=== PATIENT | female | born 1985 | race Caucasian/White ===

== ENCOUNTER → 2016-05-05 | Outpatient (CLI) | payer BC ==
[2016-05-05 12:32] LABS: CH 31.8; CHCM 33.4; HCT 37.2 % (34.0-46.0); HDW 2.59; MCH 30.8 pg (25.0-35.0); MCHC 32.2 g/dL (31.0-37.0); MCV 95.5 fL (80.0-100.0); Mean Platelet Volume 8.3; RDW 13.2 % (11.5-15.5); WBC 7.9 k/uL (3.8-10.6)
== END | disposition home or self-care (01) ==
LOC: LABWHC1 11:18
PROVIDERS: ATTEND Obstetrics & Gynecology
DX: Z34.02 Encounter for supervision of normal first pregnancy, second trimester (principal); Z3A.00 Weeks of gestation of pregnancy not specified
CPT/HCPCS: 36415; 82950; 85027

== ENCOUNTER → 2016-05-12 | Outpatient (CLI) | payer BC ==
[2016-05-12 11:27] LABS: Glucose 3 Hour, Gest 105 mg/dL
== END | disposition home or self-care (01) ==
LOC: LABWHC1 07:25
PROVIDERS: ATTEND Obstetrics & Gynecology
DX: O24.419 Gestational diabetes mellitus in pregnancy, unspecified control (principal); Z3A.00 Weeks of gestation of pregnancy not specified
CPT/HCPCS: 36415; 82951; 82952

== ENCOUNTER 2016-08-18 16:21 | Inpatient (IN) | payer BC ==
--- NOTE | 2016-08-18 11:52 | P.HPOB ---
History of Present Illness H&P Date: 08/18/16 Chief Complaint: Patient is presenting for induction secondary to gestational diabetes. This patient is a pleasant 30-year-old 1 para 0 female estimated date of confinement 08/25/2016 estimated gestational age he 9-0/7 weeks gestation who is presenting for two-stage induction of labor secondary to unfavorable cervix with gestational diabetes at term. Patient's has been complicated by the gestational diabetes and has been managed by maternal medicine. She has had to go on on oral hypoglycemic but has had relatively good control. She also has a large uterine fibroid that has been watched by maternal medicine as well. Recommendations at this time are to proceed with delivery and she has an unfavorable cervix so we are going to proceed with a two-stage induction of labor. Review of Systems Constitutional: Denies chills, Denies fever Ears, nose, mouth and throat: Denies headache, Denies sore throat Cardiovascular: Denies chest pain, Denies shortness of breath Respiratory: Denies cough Gastrointestinal: Reports heartburn Genitourinary: Reports Menstruation: Reports amenorrhea Musculoskeletal: Denies myalgias Integumentary: Denies pruritus, Denies rash Neurological: Denies numbness, Denies weakness Psychiatric: Denies anxiety, Denies depression Past Medical History Additional Past Medical History / Comment(s): She has a known large uterine fibroid. Gestational diabetes. Patient is morbidly obese. History of Any Multi-Drug Resistant Organisms: None Reported Past Surgical History: No Surgical Hx Reported Past Anesthesia/Blood Transfusion Reactions: No Reported Reaction Past Psychological History: No Psychological Hx Reported Smoking Status: Former smoker Past Alcohol Use History: None Reported Past Drug Use History: None Reported Medications and Allergies Allergies Allergy/AdvReac Type Severity Reaction Status Date / Time No Known Allergies Allergy Verified 08/18/16 11:48 Exam - OBG Physical Exam Abdomen: bowel sounds normal, no diffuse tenderness, no bruit present, no guarding noted, no hepatomegaly, no splenomegaly, no mass Vulva: both: normal Vagina: normal moisture, no discharge Cervix: no lesion, no discharge Uterus: enlarged (Uterus is measuring 43 cm.) Adnexa: both: normal Results blood work shows she is O positive, rubella immune, RPR nonreactive, hepatitis B negative, Glucola was abnormal with an abnormal 3 hour gtt. Group B strep was negative. Ultrasound shows a 6-7 cm anterior lower uterine segment fibroid she has not grown significantly throughout the . Estimated weight done on August 11 shows the baby to be 6 lbs. 15 oz. Assessment and Plan (1) Third trimester Narrative/Plan: This is a pleasant 30-year-old 1 para 0 female 39-0/7 weeks gestation who presents to labor and delivery for stage induction of labor secondary to gestational diabetes at term with a unfavorable cervix. Patient also has a large uterine fibroid. Plan at this time is two-stage induction of labor and anticipate vaginal delivery. Status: Acute (2) Gestational diabetes mellitus (GDM) affecting first Status: Acute (3) Uterine fibroid in Status: Acute
[2016-08-18] MEDS ORDERED: DINOPROSTONE 10 MG INSERT.ER VAGINAL ONE (16:34)
[2016-08-18] MEDS ORDERED: BUTORPHANOL 1 MG/ML 1 ML VIAL IV PRN (16:34)
[2016-08-18 16:58] VITALS: BMI 50.3
[2016-08-18 17:08] LABS: Glucose,Whole Blood 94 mg/dL (75-99)
[2016-08-19] MEDS ORDERED: CARBOPROST TROMETHAMINE 250 MCG/ML 1 ML AMP IM PRN (04:37)
[2016-08-19] MEDS ORDERED: LIDOCAINE 1% (PF) 10 MG/ML (30 ML SDV) SQ PRN (04:37)
[2016-08-19] MEDS ORDERED: TERBUTALINE 1 MG/ML VIAL SQ PRN (04:37)
[2016-08-19] MEDS ORDERED: OXYTOCIN 10 UNIT/ML 1 ML VIAL IM PRN (04:37)
[2016-08-19] MEDS ORDERED: METHYLERGONOVINE 0.2 MG/ML 1 ML AMP IM PRN (04:37)
[2016-08-19] MEDS ORDERED: OXYTOCIN 20 UNITS/1000 ML NS 1,000 ML IV SCH ×2 (04:37→14:00)
[2016-08-19 05:53] LABS: Glucose,Whole Blood 99 mg/dL (75-99)
[2016-08-19] MEDS: LACTATED RINGERS 1,000 ML IV SCH ×4 (05:59→18:11)
[2016-08-19 06:07] LABS: Basophils % (A) 0 %; CH 31.5; CHCM 34.4; Eosinophils # (A) 0.1 k/uL (0-0.7); Eosinophils % (A) 1 %; HCT 40.5 % (34.0-46.0); HGB 13.9 gm/dL (11.4-16.0); Luc # (Auto) 0.12; Luc % (Auto) 1; Lymphocytes # (A) 1.9 k/uL (1.0-4.8); Lymphocytes % (A) 19 %; MCH 31.5 pg (25.0-35.0); MCHC 34.2 g/dL (31.0-37.0); Mean Platelet Volume 8.1; Monocytes # (A) 0.4 k/uL (0-1.0); Monocytes % (A) 4 %; Neutrophils # (A) 7.5 k/uL (1.3-7.7); Neutrophils % (A) 76 %; RDW 14.4 % (11.5-15.5); WBC 9.9 k/uL (3.8-10.6); WBC (Perox) 9.58
[2016-08-19 07:12] LABS: Glucose,Whole Blood 103 mg/dL (75-99)
[2016-08-19 07:55] LABS: Hemoglobin A1C 5.7 % (4.2-6.1)
[2016-08-19 08:16] LABS: Glucose,Whole Blood 111 mg/dL (75-99)
[2016-08-19] MEDS ORDERED: ONDANSETRON 4 MG/2 ML VIAL IVP PRN ×2 (08:18→14:00)
[2016-08-19 09:27] LABS: Glucose,Whole Blood 99 mg/dL (75-99)
[2016-08-19] MEDS ORDERED: fentaNYL (PF) 50 MCG/ML 5 ML AMP ONE (10:12)
[2016-08-19] MEDS ORDERED: SODIUM CHLORIDE 0.9% 100 ML BAG ONE (10:12)
[2016-08-19] MEDS ORDERED: BUPIVACAINE (PF) 0.25% 30 ML VIAL ONE (10:12)
[2016-08-19 10:13] LABS: Glucose,Whole Blood 109 mg/dL (75-99)
[2016-08-19 11:08] LABS: Glucose,Whole Blood 103 mg/dL (75-99)
[2016-08-19] MEDS ORDERED: CITRIC ACID-SODIUM CITRATE 15 ML CUP PO ONE (12:31)
[2016-08-19] MEDS ORDERED: ceFAZolin 3 GM in SODIUM CHLORIDE 0.9% 100 ML IVPB ONE (12:31)
[2016-08-19 12:33] LABS: Glucose,Whole Blood 94 mg/dL (75-99)
[2016-08-19] MEDS ORDERED: ACETAMINOPHEN IV (For NPO) 1,000 MG/100 ML VIAL ONE (13:10)
[2016-08-19] MEDS ORDERED: OXYTOCIN 10 UNIT/ML 1 ML VIAL ONE (13:10)
[2016-08-19] MEDS ORDERED: KETOROLAC 30 MG/ML 1 ML VIAL ONE (13:10)
[2016-08-19] MEDS ORDERED: ONDANSETRON 4 MG/2 ML VIAL ONE (13:10)
[2016-08-19] MEDS ORDERED: diphenhydrAMINE 50 MG/ML 1 ML VIAL ONE (13:10)
[2016-08-19] MEDS ORDERED: LACTATED RINGERS 1,000 ML BAG IV ONE (13:10)
[2016-08-19] MEDS ORDERED: ZOLPIDEM 5 MG TAB PO PRN (14:00)
[2016-08-19] MEDS ORDERED: SIMETHICONE 80 MG CHEWABLE PO PRN (14:00)
[2016-08-19] MEDS ORDERED: diphenhydrAMINE 50 MG/ML 1 ML VIAL IVP PRN (14:00)
[2016-08-19] MEDS ORDERED: LANOLIN CREAM 5 GM TUBE TOPICAL PRN (14:00)
[2016-08-19] MEDS ORDERED: Acetaminophen-Codeine 300-30mg TAB PO PRN (14:00)
[2016-08-19] MEDS ORDERED: METOCLOPRAMIDE 5 MG/ML 2 ML VIAL IVP PRN (14:00)
[2016-08-19] MEDS ORDERED: diphenhydrAMINE 25 MG CAP PO PRN (14:00)
[2016-08-19] MEDS ORDERED: NALOXONE 0.4 MG/ML 1 ML VIAL IV PRN (14:00)
[2016-08-19] MEDS ORDERED: ACETAMINOPHEN TAB 325 MG TAB PO PRN (14:00)
[2016-08-19] MEDS: HYDROmorphone PCA 5 MG/25 ML SYRINGE IV PRN (14:16)
--- NOTE | 2016-08-19 17:32 | P.OP ---
Date of Procedure: 08/19/16 Preoperative Diagnosis: #1: 39-0/7 weeks . #2: Gestational diabetes. #3: Large uterine fibroid. #4: Nonreassuring heart tones remote from delivery. Postoperative Diagnosis: Same Procedure(s) Performed: #1: Primary low transverse section. Implants: Anesthesia: epidural Surgeon: Ramiro Chong Ticket Sales Supervisor #1: Samantha Orozco Estimated Blood Loss (ml): 1,000 Pathology: other Condition: stable Disposition: PACU (Central) Indications for Procedure: Please see dictated H&P for intimate details of this patient's admission. Brief summary this is a pleasant 30-year-old 1 para 0 female 39-0/7 weeks gestation who is admitted last evening for two-stage induction of labor secondary to gestational diabetes, large uterine fibroid, an unfavorable cervix. Patient has Cervidil placed and this morning is 1-2 cm dilated. She is artificial rupture membranes for clear fluid and labor is induced with Pitocin. Patient gets to 4-5 cm dilated begins having decreased variability and questionable late decelerations. At this time I recommended proceed with section for delivery. Patient understands this surgery and risks including risks of infection, bleeding, possible injury bowel, bladder, vessels , and other organs. All the patient's questions are answered written consent is obtained. Operative Findings: This patient vigorous viable female infant Apgars 8 and 9 delivery time is 1324 hrs. There was a 6-7 cm fibroid the anterior uterine wall mid position. The uterus tubes and ovaries otherwise appeared normal. Description of Procedure: This patient has a Barbosa catheter placed to straight drain. She's taken to the operating room where she has her epidural dosed up for sufficient level of surgery. With an adequate level of anesthesia she has abdominal prep and drape. Scalpels taken and a Pfannenstiel skin incision is made. A second scalpel is then taken down to the fascia and the fascia scored with scalpel. Fascial incision extended bilaterally using the Amador scissors. Fascia is dissected off the rectus muscles sharply. The peritoneum was then identified and entered sharply. Peritoneal incision extended superior and inferior without difficulty. This time the bladder peritoneum was developed off the lower uterine segment sharply. There is a 6-7 cm mid position fibroid of the anterior wall. The Travis self-retaining retractor is then placed. Scalpels and taken and a low transverse uterine incision is made beneath the fibroid. Using a hemostat I enter the uterine cavity bluntly and there is loss of clear fluid. This incision is extended bluntly as well. is then delivered through this incision with fundal pressure. Mouth and nares are bulb suctioned there is no evidence of a nuchal cord. Have delivery the anterior posterior shoulder and rest this infant's body. A vigorous viable female Apgars are 8 and 9 delivery time was 1324 hrs. After delivery of the the umbilical cord is doubly clamped and cut appears to be trivascular. The is handed off to the nurses in attendance. Placenta is then manually extracted intact. Uterus is then externalized uterine incision demarcated with Young clamps. Uterine incision closed using 0 Vicryl running locked fashion. There is a blood vessel on the right margin that continues to bleed in multiple [id number] stitches of 0 Vicryl placed until hemostasis is noted. A second layer of the uterus is closed with an 0 Vicryl running fashion. The bladder peritoneum was then closed using a 3-0 Vicryl. Special attention is made to the right side continues to be hemostatic. With this done the Travis retractor is removed. Uterus placed back into the abdomen. Excess fluid is removed from the abdomen and pelvis. Final inspection shows excellent hemostasis. The peritoneum was then identified and closed using 0 Vicryl running fashion. Rectus muscles reapproximated in 0 Vicryl interrupted fashion. Fascia was then closed using a 0 PDS running fashion. Fascial incision is intact and hemostatic. Subcutaneous she was then reapproximated using 3-0 Vicryl. Skin is and closed using tr. Sterile dressing is then applied. All counts are correct 3. There are no complications. Infant and mother are taken to the birthing suite in satisfactory condition.
[2016-08-19] MEDS: KETOROLAC 30 MG/ML 1 ML VIAL IVP PRN (19:56)
[2016-08-19] MEDS: SENNOSIDES-DOCUSATE SODIUM 1 EACH TAB PO SCH (20:02)
[2016-08-19] MEDS: ceFAZolin 3 GM in SODIUM CHLORIDE 0.9% 100 ML IVPB SCH (21:14)
[2016-08-20] MEDS: LACTATED RINGERS 1,000 ML IV SCH ×3 (01:00→14:46)
[2016-08-20] MEDS: HYDROmorphone PCA 5 MG/25 ML SYRINGE IV PRN (02:03)
[2016-08-20] MEDS: KETOROLAC 30 MG/ML 1 ML VIAL IVP PRN (05:12)
[2016-08-20] MEDS: ceFAZolin 3 GM in SODIUM CHLORIDE 0.9% 100 ML IVPB SCH (05:14)
--- NOTE | 2016-08-20 06:34 | P.PNOBGPC ---
Subjective - Subjective Patient reports: Reports appetite normal, Reports voiding normally, Reports pain well controlled, Reports ambulating normally : doing well Objective - Vital Signs Latest vital signs: Vital Signs Temp Pulse Resp BP Pulse Ox 08/20/16 04:00 97.7 F 85 16 116/70 98 08/20/16 00:00 97.8 F 84 16 118/70 97 08/19/16 20:00 97.6 F 93 18 129/78 97 08/19/16 16:07 97.4 F L 80 18 143/89 100 08/19/16 16:00 97.4 F L 80 18 143/89 100 08/19/16 15:37 97.9 F 90 16 133/84 100 08/19/16 15:07 79 18 155/74 100 08/19/16 14:52 98.0 F 81 18 138/68 100 08/19/16 14:37 98.0 F 80 16 142/70 98 08/19/16 14:20 93 16 92/82 98 08/19/16 14:00 96.7 F L 78 18 98/47 96 Intake and Output 08/19/16 08/19/16 08/20/16 14:59 22:59 06:59 Intake Total 3300 Output Total 1050 200 600 Balance 2250 -200 -600 Intake: IV 3300 Lactated Ringers 1,000 ml 2500 @ 125 mls/hr IV .Q8H [facility] Rx#:[id number] ceFAZolin 3 gm In Sodium 100 Chloride 0.9% 100 ml @ 100 mls/hr IVPB ONCE ONE Rx#:[id number] Output: Urine 50 200 600 Uretheral (Barbosa) 300 Estimated Blood Loss 1000 Other: Voiding Method Indwelling Catheter Indwelling Catheter Indwelling Catheter # Voids 2 - Exam Lungs: bilateral: normal Chest: Normal S1, Normal S2 Extremities: Present: normal Abdomen: Present: normal appearance, soft. Absent: distention, tenderness Incision: Present: normal, dry, intact Uterus: Present: normal, firm - Labs Labs: Abnormal Lab Results - Last 24 Hours (Table) 08/19/16 08/19/16 08/19/16 Range/Units 07:10 08:14 10:01 POC Glucose (mg/dL) 103 H 111 H 109 H (75-99) mg/dL 08/19/16 Range/Units 10:56 POC Glucose (mg/dL) 103 H (75-99) mg/dL Assessment and Plan (1) Third trimester Narrative/Plan: Postoperative day #1. Patient is resting without complaints. Vital signs are stable and she is afebrile. Uterus is firm nontender and her incision is intact and dry. Blood pressures are normal and bleeding is normal as well. Plan today is check a CBC, encouraged patient to ambulate, we'll discontinue the INORGANIC CHEMIST, and allow patient to shower. Current Visit: Yes Status: Acute Code(s): Z33.1 - STATE, INCIDENTAL SNOMED Code(s): 78853896 (2) Gestational diabetes mellitus (GDM) affecting first Current Visit: Yes Status: Acute Code(s): O24.419 - GESTATIONAL DIABETES MELLITUS IN , UNSP CONTROL SNOMED Code(s): 01176298680239 (3) Uterine fibroid in Current Visit: Yes Status: Acute Code(s): O34.10 - MATERNAL CARE FOR BENIGN TUMOR OF CORPUS UTERI, UNSP TRI; D25.9 - LEIOMYOMA OF UTERUS, UNSPECIFIED SNOMED Code(s): 21451912
[2016-08-20] MEDS: SENNOSIDES-DOCUSATE SODIUM 1 EACH TAB PO SCH ×2 (08:13→19:32)
[2016-08-20 10:15] LABS: Basophils % (A) 0 %; CH 31.5; CHCM 33.6; Eosinophils # (A) 0.1 k/uL (0-0.7); Eosinophils % (A) 1 %; HCT 34.8 % (34.0-46.0); HDW 2.57; HGB 11.5 gm/dL (11.4-16.0); Luc # (Auto) 0.11; Luc % (Auto) 1; Lymphocytes # (A) 1.5 k/uL (1.0-4.8); Lymphocytes % (A) 15 %; MCH 31.4 pg (25.0-35.0); MCHC 33.2 g/dL (31.0-37.0); MCV 94.4 fL (80.0-100.0); Mean Platelet Volume 8.9; Monocytes # (A) 0.4 k/uL (0-1.0); Monocytes % (A) 4 %; Neutrophils # (A) 7.6 k/uL (1.3-7.7); Neutrophils % (A) 79 %; RBC 3.68 m/uL (3.80-5.40); RDW 14.7 % (11.5-15.5); WBC 9.7 k/uL (3.8-10.6)
[2016-08-20] MEDS: IBUPROFEN 600 MG TAB PO PRN ×2 (10:44→17:01)
[2016-08-21] MEDS: Acetaminophen-Codeine 300-30mg TAB PO PRN ×2 (00:06→08:02)
[2016-08-21] MEDS: LACTATED RINGERS 1,000 ML IV SCH (02:26)
--- NOTE | 2016-08-21 06:16 | P.PNOBGPC ---
Subjective - Subjective Patient reports: Reports appetite normal, Reports voiding normally, Reports pain well controlled, Reports ambulating normally : doing well Objective - Vital Signs Latest vital signs: Vital Signs Temp Pulse Resp BP Pulse Ox 08/21/16 00:00 97.8 F 82 16 134/73 99 08/20/16 20:00 97.5 F L 80 17 116/75 99 08/20/16 12:00 97.8 F 89 18 126/76 100 08/20/16 08:00 98.2 F 75 18 125/74 100 Intake and Output 08/20/16 08/20/16 08/21/16 14:59 22:59 06:59 Output Total 1000 Balance -1000 Output: Urine 1000 - Exam Lungs: bilateral: normal Chest: Normal S1, Normal S2 Extremities: Present: normal Abdomen: Present: normal appearance, soft. Absent: distention, tenderness Incision: Present: normal, dry, intact Uterus: Present: normal, firm - Labs Labs: Abnormal Lab Results - Last 24 Hours (Table) 08/20/16 Range/Units 09:31 RBC 3.68 L (3.80-5.40) m/uL Assessment and Plan (1) Third trimester Narrative/Plan: day #2. Patient is resting without complaints. Vital signs are stable she is afebrile. Uterus is firm nontender her incision is intact and dry. Patient wishes to go home today. Hemoglobin yesterday was good. My impression this is a stop operative course patient's felt stable for discharge home. Plan will be to continue routine care discharge home later today. Current Visit: Yes Status: Acute Code(s): Z33.1 - STATE, INCIDENTAL SNOMED Code(s): 52922930 (2) Gestational diabetes mellitus (GDM) affecting first Current Visit: Yes Status: Acute Code(s): O24.419 - GESTATIONAL DIABETES MELLITUS IN , UNSP CONTROL SNOMED Code(s): 34080479223852 (3) Uterine fibroid in Current Visit: Yes Status: Acute Code(s): O34.10 - MATERNAL CARE FOR BENIGN TUMOR OF CORPUS UTERI, UNSP TRI; D25.9 - LEIOMYOMA OF UTERUS, UNSPECIFIED SNOMED Code(s): 82837610
--- NOTE | 2016-08-21 06:20 | P.DS ---
Providers Date of admission: 08/18/16 16:21 Expected date of discharge: 08/21/16 Attending physician: Ramiro Chong Primary care physician: Stated None - Discharge Diagnosis(es) (1) Third trimester Current Visit: Yes Status: Acute (2) Gestational diabetes mellitus (GDM) affecting first Current Visit: Yes Status: Acute (3) Uterine fibroid in Current Visit: Yes Status: Acute Hospital Course: Please see dictated H&P for intimate details of this patient's admission. Brief summary this is a pleasant 30-year-old 1 para 0 female 39 weeks gestation admitted to labor and delivery for delivery secondary to gestational diabetes and large uterine fibroid. Patient had two-stage induction of labor and subsequent have a primary low transverse section for nonreassuring heart tones. By day #2 patient's felt be stable for discharge home follow up with me in 1 week for an incision check. Procedures: Induction of labor and primary low transverse section Patient Condition at Discharge: Good Plan - Discharge Summary New Discharge Prescriptions: Acetaminophen-Codeine 300-30mg [Tylenol w/codeine #3] 1 - 2 each PO Q4HR PRN # 40 tab PRN Reason: Mild Pain Ibuprofen [Motrin] 600 mg PO Q6HR PRN #40 tab PRN Reason: Mild Pain Or Fever >= 100.5 Discharge Medication List glyBURIDE [Diabeta] 2.5 mg PO AC-BID 08/18/16 [History] Acetaminophen-Codeine 300-30mg [Tylenol w/codeine #3] 1 - 2 each PO Q4HR PRN # 40 tab 08/21/16 [Rx] Ibuprofen [Motrin] 600 mg PO Q6HR PRN #40 tab 08/21/16 [Rx] Follow up Appointment(s)/Referral(s): Ramiro Chong MD [STAFF PHYSICIAN] - 1 Week (Patient also has a 6 weeks check on October 08 9:15 AM.) Patient Instructions/Handouts: (DC) Activity/Diet/Wound Care/Special Instructions: No heavy lifting or strenuous activity for 6 weeks. No intercourse or anything per vagina for 6 weeks. Please call if any fever, chills, excessive vaginal bleeding, and/or abdominal pain. Discharge Disposition: HOME SELF-CARE
[2016-08-21] MEDS: SENNOSIDES-DOCUSATE SODIUM 1 EACH TAB PO SCH (08:02)
[2016-08-21 08:49] VITALS: BP 130/77; PULSE 87; RESP 18; TEMP 98.2
== END 2016-08-21 09:52 | disposition home or self-care (01) | DRG 766 ==
LOC: 4FBP 16:21 → EDSTATUS 17:00
PROVIDERS: ADMIT Obstetrics & Gynecology; ATTEND Obstetrics & Gynecology
PROC: 3E033VJ Introduction of Other Hormone into Peripheral Vein, Percutaneous Approach (ICD-10-PCS; principal; 2016-08-18)
PROC: 3E0P7GC Introduction of Other Therapeutic Substance into Female Reproductive, Via Natural or Artificial Opening (ICD-10-PCS; principal; 2016-08-18)
PROC: 10907ZC Drainage of Amniotic Fluid, Therapeutic from Products of Conception, Via Natural or Artificial Opening (ICD-10-PCS; principal; 2016-08-18)
PROC: 3E0R3CZ (ICD-10-PCS; 2016-08-19)
PROC: 00HU33Z Insertion of Infusion Device into Spinal Canal, Percutaneous Approach (ICD-10-PCS; 2016-08-19)
PROC: 10D00Z1 Extraction of Products of Conception, Low, Open Approach (ICD-10-PCS; 2016-08-19)
DX: O24.425 Gestational diabetes mellitus in childbirth, controlled by oral hypoglycemic drugs (principal); D25.9 Leiomyoma of uterus, unspecified; Z37.0 Single live birth; O34.13 Maternal care for benign tumor of corpus uteri, third trimester; Z3A.39 39 weeks gestation of pregnancy; Z87.891 Personal history of nicotine dependence; O76 Abnormality in fetal heart rate and rhythm complicating labor and delivery
CPT/HCPCS: 83036; 85025; 88307

== ENCOUNTER 2016-09-20 05:42 | Inpatient (IN) | payer BC ==
[2016-09-20] MEDS ORDERED: SODIUM CHLORIDE 0.9% 500 ML IV STA (06:29)
--- NOTE | 2016-09-20 06:45 | XR ---
EXAMINATION TYPE: XR chest 1V portable DATE OF EXAM: 09/20/2016 HISTORY: chest pain. REFERENCE: NONE. FINDINGS: The patient has taken a poor inspiration. Allowing for this the lungs appear clear. Pleural spaces are clear. The heart projects slightly above normal in size. IMPRESSION: 1. POOR INSPIRATION. 2. NO DEFINITE ACUTE INTRATHORACIC ABNORMALITY.
[2016-09-20 06:49] LABS: Basophils % (A) 0 %; CH 30.5; CHCM 32.1; Eosinophils # (A) 0.1 k/uL (0-0.7); Eosinophils % (A) 1 %; HDW 2.21; HGB 12.8 gm/dL (11.4-16.0); Luc % (Auto) 1; Lymphocytes # (A) 1.2 k/uL (1.0-4.8); Lymphocytes % (A) 16 %; MCH 31.1 pg (25.0-35.0); MCHC 32.7 g/dL (31.0-37.0); MCV 95.1 fL (80.0-100.0); Mean Platelet Volume 7.9; Monocytes # (A) 0.4 k/uL (0-1.0); Monocytes % (A) 5 %; Neutrophils # (A) 5.7 k/uL (1.3-7.7); Neutrophils % (A) 77 %; RDW 13.8 % (11.5-15.5); WBC 7.4 k/uL (3.8-10.6); WBC (Perox) 7.83
--- NOTE | 2016-09-20 06:53 | ED ---
Chest Pain HPI - General Chief Complaint: Chest Pain Stated Complaint: chest pain Time Seen by Provider: 09/20/16 06:26 Source: patient Mode of arrival: wheelchair Limitations: no limitations - History of Present Illness Initial Comments: This patient is a 30-year-old woman who presents to be evaluated for substernal chest pain that does radiate to her back. She states that she has been having episodes intermittently going back for a few months now. The patient recently was and did deliver her baby months ago. She indicates that the pain seems to come on after eating. The pain is located in the substernal area or epigastric area and does radiate to her back. The pain usually lasts a few hours and can be quite severe. She also usually has some nausea and vomiting associated. She has not noted any other worsening or relieving factors. MD Complaint: chest pain -: hour(s) Onset: during rest, after eating Pain Location: substernal Pain Radiation: back Severity: severe Quality: aching Consistency: intermittent Improves With: nothing Worsens With: eating Anginal Symptoms: nausea, vomiting Treatments Prior to Arrival: none - Related Data Home Medications Medication Instructions Recorded Confirmed glyBURIDE [Diabeta] 2.5 mg PO AC-BID 08/18/16 08/18/16 Previous Rx's Medication Instructions Recorded Acetaminophen-Codeine 300-30mg 1 - 2 each PO Q4HR PRN #40 tab 08/21/16 [Tylenol w/codeine #3] Ibuprofen [Motrin] 600 mg PO Q6HR PRN #40 tab 08/21/16 Allergies Allergy/AdvReac Type Severity Reaction Status Date / Time No Known Allergies Allergy Verified 09/20/16 05:48 Review of Systems ROS Statement: Those systems with pertinent positive or pertinent negative responses have been documented in the HPI. ROS Other: All systems not noted in ROS Statement are negative. EKG Findings - EKG Results: EKG: interpreted by BILLY LOVELL, sinus rhythm (Rate 67 bpm), normal axis, normal QRS, normal ST/T, no acute changes - OH, Pacemaker, Normal: Normal tracing: normal tracing Past Medical History Past Medical History: No Reported History Additional Past Medical History / Comment(s): She has a known large uterine fibroid. Gestational diabetes. Patient is morbidly obese. History of Any Multi-Drug Resistant Organisms: None Reported Past Surgical History: No Surgical Hx Reported Past Anesthesia/Blood Transfusion Reactions: No Reported Reaction Past Psychological History: No Psychological Hx Reported Smoking Status: Former smoker Past Alcohol Use History: None Reported Past Drug Use History: None Reported - Past Family History Father Family Medical History: Hypertension General Exam Limitations: no limitations Course Vital Signs 09/20/16 05:46 Temperature 97.9 F Pulse Rate 88 Respiratory 16 Rate Blood Pressure 127/89 O2 Sat by Pulse 97 Oximetry Disposition Clinical Impression: Abdominal pain, Pancreatitis, Biliary colic Disposition: ADMITTED IP TO THIS HOSP Condition: Fair Referrals: Shaggy Brooks MD [Primary Care Provider] - 1-2 days
[2016-09-20 07:04] LABS: ALT 75 U/L (9-52); AST 72 U/L (14-36); Alkaline Phosphatase 86 U/L (38-126); Amylase 115 U/L (30-110); Anion Gap 10 mmol/L; Blood Urea Nitrogen 15 mg/dL (7-17); Calcium 9.4 mg/dL (8.4-10.2); Carbon Dioxide 23 mmol/L (22-30); Chloride 107 mmol/L (98-107); Glucose 94 mg/dL (74-99); Magnesium 1.6 mg/dL (1.6-2.3); Non-African American GFR(MDRD) >60 (>60 ml/min/1.73 sqM); Potassium 4.3 mmol/L (3.5-5.1); Sodium 140 mmol/L (137-145); Total Bilirubin 0.6 mg/dL (0.2-1.3); Total Protein 6.6 g/dL (6.3-8.2)
[2016-09-20] MEDS ORDERED: NALOXONE 0.4 MG/ML 1 ML VIAL IV PRN (08:24)
[2016-09-20] MEDS ORDERED: MORPHINE SULFATE 4 MG/ML SYRINGE IV PRN (08:24)
[2016-09-20] MEDS ORDERED: ONDANSETRON 4 MG/2 ML VIAL IVP PRN (08:24)
[2016-09-20] MEDS: SODIUM CHLORIDE 0.9% 1,000 ML IV SCH ×3 (09:01→19:17)
--- NOTE | 2016-09-20 09:16 | US ---
EXAMINATION TYPE: US abdomen limited DATE OF EXAM: 09/20/2016 COMPARISON: NONE CLINICAL HISTORY: Pain, attention RUQ. EXAM MEASUREMENTS: Liver Length: 16.2 cm Gallbladder Wall: 0.4 cm CBD: 0.3 cm Right Kidney: 10.3 x 4.6 x 5.5 cm Large body habitus limiting exam somewhat. Pancreas: Tail partially obscured by overlying bowel gas, portions visualized appear wnl Liver: Increased attenuation Gallbladder: Cholelithiasis, thickened wall, probable stones in neck Evidence for sonographic Heard's sign: CBD: wnl Right Kidney: Inferior pole obscured by overlying bowel gas Limited views of the pancreas are normal. The liver is normal in size but slightly attenuating and may be fatty infiltrated. There is gallstones within the gallbladder. The gallbladder wall is thickened measuring 4 mm. The dis nell common hepatic duct measures 3 mm. Limited views of the right kidney are normal. IMPRESSION: CHOLELITHIASIS AND POSSIBLE ACUTE CHOLECYSTITIS.
[2016-09-20 10:22] VITALS: BMI 46.1
[2016-09-20] MEDS: FAMOTIDINE 20 MG TAB PO SCH ×2 (10:58→21:09)
--- NOTE | 2016-09-20 15:16 | P.GSCN ---
History of Present Illness Consult date: 09/20/16 Reason for Consult: Abdominal pain History of present illness: Patient is a 30-year-old white female who presents with a complete plaint of midepigastric abdominal discomfort extending into her chest. She states that she has had several of these episodes since delivery of her daughter several weeks ago. The patient states that during her likewise she had several attacks of this fashion. Lastly she states she ate pizza and had a beer after which the attack occurred. She denies any fever or chills. She states that she is feeling better at this time. Patient underwent laboratory studies which revealed a white count of 7.4 however, she was noted to have an AST of 72 and a ALT of 75 and amylase of 115 and lipase of 2929. Additionally she had an ultrasound of the gallbladder performed which revealed stones as well as some thickening of the wall. Past surgical history: 1 month ago Past medical history: Negative Medications: Reglan ALLERGIES: Negative Social history: Smoked was stopped approximately a year ago Alcohol: Moderate Marijuana: Negative Review of systems: HEENT negative Cardiac: Negative GI: As above : As above 1 /1 live Review of Systems - Constitutional Reports as per HPI - Cardiovascular Reports as per HPI - Gastrointestinal Reports as per HPI - Genitourinary Genitourinary: Reports as per HPI Past Medical History Past Medical History: No Reported History Additional Past Medical History / Comment(s): She has a known large uterine fibroid. Gestational diabetes. Patient is morbidly obese. History of Any Multi-Drug Resistant Organisms: None Reported Past Surgical History: Section Past Anesthesia/Blood Transfusion Reactions: No Reported Reaction Past Psychological History: No Psychological Hx Reported Smoking Status: Former smoker Past Alcohol Use History: None Reported Past Drug Use History: None Reported - Past Family History Father Family Medical History: Hypertension Medications and Allergies Home Medications Medication Instructions Recorded Confirmed Type Metoclopramide [Reglan] 10 mg PO DIRECTED 09/20/16 09/20/16 History Allergies Allergy/AdvReac Type Severity Reaction Status Date / Time No Known Allergies Allergy Verified 09/20/16 05:48 Surgical - Exam Vital Signs Temp Pulse Resp BP Pulse Ox 97.9 F 88 16 127/89 97 09/20/16 05:46 09/20/16 05:46 09/20/16 05:46 09/20/16 05:46 09/20/16 05:46 - General well developed, no distress, obese - Neck no masses, no bruits, trachea midline, no lymphadectomy - Respiratory normal expansion, normal respiratory effort, clear to auscultation - Cardiovascular Rhythm: regular Heart Sounds: normal: S1, S2 - Abdomen Abdomen: soft, non tender, bowel sounds - Psychiatric oriented to time, oriented to person, oriented to place, speech is normal Results - Labs 09/20/16 06:40 09/20/16 06:40 Abnormal Lab Results - Last 24 Hours (Table) 09/20/16 Range/Units 06:40 AST 72 H (14-36) U/L ALT 75 H (9-52) U/L Amylase 115 H (30-110) U/L Lipase 2929 H (23-300) U/L Diabetes panel 09/20/16 Range/Units 06:40 Sodium 140 (137-145) mmol/L Potassium 4.3 (3.5-5.1) mmol/L Chloride 107 (98-107) mmol/L Carbon Dioxide 23 (22-30) mmol/L BUN 15 (7-17) mg/dL Creatinine 0.81 (0.52-1.04) mg/dL Glucose 94 (74-99) mg/dL Calcium 9.4 (8.4-10.2) mg/dL AST 72 H (14-36) U/L ALT 75 H (9-52) U/L Alkaline Phosphatase 86 (38-126) U/L Total Protein 6.6 (6.3-8.2) g/dL Albumin 3.8 (3.5-5.0) g/dL Calcium panel 09/20/16 Range/Units 06:40 Calcium 9.4 (8.4-10.2) mg/dL Albumin 3.8 (3.5-5.0) g/dL Pituitary panel 09/20/16 Range/Units 06:40 Sodium 140 (137-145) mmol/L Potassium 4.3 (3.5-5.1) mmol/L Chloride 107 (98-107) mmol/L Carbon Dioxide 23 (22-30) mmol/L BUN 15 (7-17) mg/dL Creatinine 0.81 (0.52-1.04) mg/dL Glucose 94 (74-99) mg/dL Calcium 9.4 (8.4-10.2) mg/dL Adrenal panel 09/20/16 Range/Units 06:40 Sodium 140 (137-145) mmol/L Potassium 4.3 (3.5-5.1) mmol/L Chloride 107 (98-107) mmol/L Carbon Dioxide 23 (22-30) mmol/L BUN 15 (7-17) mg/dL Creatinine 0.81 (0.52-1.04) mg/dL Glucose 94 (74-99) mg/dL Calcium 9.4 (8.4-10.2) mg/dL Total Bilirubin 0.6 (0.2-1.3) mg/dL AST 72 H (14-36) U/L ALT 75 H (9-52) U/L Alkaline Phosphatase 86 (38-126) U/L Total Protein 6.6 (6.3-8.2) g/dL Albumin 3.8 (3.5-5.0) g/dL - Imaging US - abdomen: report reviewed Assessment and Plan Plan: 20-year-old recently white female admitted with probable gallstone pancreatitis 2. Elevated lipase 3. Cholelithiasis Plan: 1. Consultation with GI, related to elevated lipase and probable gallstone pancreatitis 2. Laparoscopic possible open cholecystectomy in near future
[2016-09-21] MEDS: SODIUM CHLORIDE 0.9% 1,000 ML IV SCH (02:56)
[2016-09-21 06:53] LABS: Basophils % (A) 1 %; CH 30.1; CHCM 32.5; Eosinophils # (A) 0.1 k/uL (0-0.7); Eosinophils % (A) 2 %; HCT 37.9 % (34.0-46.0); HDW 2.31; Luc # (Auto) 0.12; Luc % (Auto) 3; Lymphocytes % (A) 27 %; MCH 31.8 pg (25.0-35.0); MCHC 34.2 g/dL (31.0-37.0); Mean Platelet Volume 7.8; Monocytes # (A) 0.2 k/uL (0-1.0); Monocytes % (A) 4 %; Neutrophils # (A) 2.5 k/uL (1.3-7.7); Neutrophils % (A) 64 %; RBC 4.08 m/uL (3.80-5.40); RDW 13.5 % (11.5-15.5); WBC 3.9 k/uL (3.8-10.6)
[2016-09-21 07:08] LABS: ALT 56 U/L (9-52); AST 35 U/L (14-36); Alkaline Phosphatase 79 U/L (38-126); Anion Gap 11 mmol/L; Blood Urea Nitrogen 7 mg/dL (7-17); Calcium 8.8 mg/dL (8.4-10.2); Carbon Dioxide 21 mmol/L (22-30); Chloride 109 mmol/L (98-107); Glucose 91 mg/dL (74-99); Non-African American GFR(MDRD) >60 (>60 ml/min/1.73 sqM); Sodium 141 mmol/L (137-145); Total Bilirubin 0.8 mg/dL (0.2-1.3); Total Protein 6.2 g/dL (6.3-8.2)
[2016-09-21] MEDS ORDERED: FAMOTIDINE 20 MG TAB ONE (08:00)
[2016-09-21 08:03] LABS: Amylase 40 U/L (30-110)
[2016-09-21 08:10] VITALS: BP 114/67; PULSE 72; RESP 19
[2016-09-21] MEDS: FAMOTIDINE 20 MG TAB PO SCH (08:17)
[2016-09-21 09:12] VITALS: TEMP 97.8
--- NOTE | 2016-09-21 10:20 | P.PN ---
Subjective Principal diagnosis: Resolved gallstone pancreatitis Patient is a 30-year-old white female who presented with gallstone pancreatitis. At this time she has no abdominal discomfort and her liver function studies have completely normalized. Additionally patient wishes to be discharged home she has a daughter which is [id number] and she wishes to have elective cholecystectomy in the near future. She is tolerating a clear liquid diet. Objective - Vital Signs Vital signs: Vital Signs Temp 97.8 F 09/21/16 07:40 Pulse 72 09/21/16 07:40 Resp 19 09/21/16 07:40 BP 114/67 09/21/16 07:40 Pulse Ox 97 09/21/16 07:40 Intake & Output 09/20/16 09/21/16 09/21/16 18:59 06:59 18:59 Weight 118.2 kg Other: # Voids 1 1 - Respiratory Respiratory: bilateral: CTA - Cardiovascular Rhythm: regular Heart sounds: normal: S1, S2 - Gastrointestinal General gastrointestinal: Present: normal bowel sounds, soft - Psychiatric Psychiatric: Present: A&O x's 3, appropriate affect, intact judgment & insight - Labs CBC & Chem 7: 09/21/16 06:38 09/21/16 06:38 Labs: Abnormal Lab Results - Last 24 Hours (Table) 09/21/16 Range/Units 06:38 Chloride 109 H (98-107) mmol/L Carbon Dioxide 21 L (22-30) mmol/L ALT 56 H (9-52) U/L Total Protein 6.2 L (6.3-8.2) g/dL Albumin 3.4 L (3.5-5.0) g/dL Assessment and Plan Plan: 30-year-old recently white female admitted with probable gallstone pancreatitis 2. lipase and amylase normal 3. Cholelithiasis/resolved gallstone pancreatitis Plan: 1. Resolved gallstone pancreatitis 2. Laparoscopic possible open cholecystectomy in near future/patient understands risks and benefits and at this time wishes to be discharged home to have this done electively
--- NOTE | 2016-09-21 12:55 | CONS ---
DATE OF CONSULTATION: 09/21/2016 REASON FOR CONSULTATION: Acute pancreatitis. 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 Pain continued to progressively get worse. Radiate to the back with some nausea but no emesis. She had a similar episode while she was and she is 4 weeks . While she was , she had 3 episodes, each lasting for a few hours and gradually subsiding. In between episodes she was asymptomatic. Because the pain was much more intense this time, she came into the emergency room and subsequently was admitted to the hospital for further evaluation. She was noted to have elevated amylase and lipase consistent with acute pancreatitis and mild elevation of serum transaminase. This morning she is feeling better. No further episodes of pain. PAST MEDICAL HISTORY: None. MEDICATIONS AT HOME: Glyburide. ALLERGIES: None. SOCIAL HISTORY: No smoking. No alcohol use. FAMILY HISTORY: Unremarkable. REVIEW OF SYSTEMS: CARDIOPULMONARY: No chest pain or shortness of breath. GENITOURINARY: No dysuria or hematuria. MUSCULOSKELETAL: Unremarkable. SKIN: Unremarkable. ENDOCRINE: Unremarkable. PSYCHIATRIC: Unremarkable. NEUROLOGY: Unremarkable. ENT/vision: Unremarkable. CONSTITUTIONAL: No recent weight loss. No fever, chills, night sweats. On physical examination, she appears comfortable in no apparent distress. Vitals are stable. Blood pressure is 122/65, pulse 62, temperature 97. HEENT: Unremarkable. Conjunctivae pink. Sclerae anicteric. Oral cavity, no lesions. NECK: No jugular venous distention or lymph node enlargement. CHEST: Clear to auscultation. HEART: Regular rate and rhythm. ABDOMEN: Soft, nontender, nondistended. Bowel sounds are positive. No organomegaly. EXTREMITIES: No pedal edema. SKIN: No rashes. NEURO: Alert and oriented x3. No focal deficits. LABS: Yesterday Amylase 115, lipase 2929, AST 72, ALT 75, T-bili 1 today, AST 56, ALT 35, amylase 40, lipase 106. Ultrasound of the gallbladder did show evidence of gallstones but no biliary ductal dilation. IMPRESSION: This is a lady who presents with intermittent episodes of severe epigastric and substernal chest pain for the last 2 months' duration and she is 5 weeks . This was the fourth episode, which was more intense with pain radiating to the back, associated with some nausea but no emesis. Noted to have elevated amylase and lipase consistent with acute pancreatitis and mild elevation of serum transaminases making it likely that we are dealing with acute gallstone pancreatitis. Ultrasound did show evidence of gallstones but no biliary ductal dilation. Her labs have significantly improved today and in fact amylase and lipase are normalized and serum transaminases have significantly improved, making it more likely that she had spontaneously passed a stone. RECOMMENDATIONS: 1. Start on a clear liquid diet. 2. No indication for an ERCP at the present time. 3. We will follow her closely during her hospital stay. Thank you for this consultation.
== END 2016-09-21 10:34 | disposition home or self-care (01) | DRG 776 ==
LOC: EC 05:42 → 6PED 08:24
PROVIDERS: ADMIT Surgery; ATTEND Surgery
DX: O99.63 Diseases of the digestive system complicating the puerperium (principal); K85.10 Biliary acute pancreatitis without necrosis or infection; Z68.41 Body mass index [BMI] 40.0-44.9, adult; K80.20 Calculus of gallbladder without cholecystitis without obstruction; E66.01 Morbid (severe) obesity due to excess calories; D25.9 Leiomyoma of uterus, unspecified; Z86.32 Personal history of gestational diabetes; Z87.891 Personal history of nicotine dependence
CPT/HCPCS: 36415; 71010; 76705; 80053; 82150; 83690; 83735; 84484; 85025; 85379; 93005; 96360; 96361; 99285

== ENCOUNTER → 2016-10-03 | Outpatient (CLI) | payer BC ==
[2016-10-03 15:02] LABS: ALT 149 U/L (9-52); AST 35 U/L (14-36); Alkaline Phosphatase 106 U/L (38-126); Anion Gap 13 mmol/L; Blood Urea Nitrogen 9 mg/dL (7-17); Calcium 9.7 mg/dL (8.4-10.2); Carbon Dioxide 22 mmol/L (22-30); Chloride 108 mmol/L (98-107); Glucose 86 mg/dL (74-99); Non-African American GFR(MDRD) >60 (>60 ml/min/1.73 sqM); Potassium 4.3 mmol/L (3.5-5.1); Sodium 143 mmol/L (137-145); Total Bilirubin 0.4 mg/dL (0.2-1.3); Total Protein 7.5 g/dL (6.3-8.2)
[2016-10-03 15:15] LABS: CH 30.1; CHCM 32.7; HCT 40.4 % (34.0-46.0); HDW 2.29; HGB 13.7 gm/dL (11.4-16.0); MCH 31.2 pg (25.0-35.0); MCHC 33.9 g/dL (31.0-37.0); Mean Platelet Volume 7.7; RBC 4.39 m/uL (3.80-5.40); RDW 13.3 % (11.5-15.5)
[2016-10-03 23:48] LABS: INR 1.1 (<1.1); Prothrombin Time 10.8 sec (9.0-12.0)
== END | disposition home or self-care (01) ==
LOC: LABPAT 14:25
PROVIDERS: ATTEND Surgery
DX: Z01.812 Encounter for preprocedural laboratory examination (principal); R10.9 Unspecified abdominal pain
CPT/HCPCS: 36415; 80053; 85027; 85610

== ENCOUNTER 2016-10-07 10:49 | Day surgery (SDC) | payer BC ==
[2016-10-06 08:25] VITALS: BMI 46.0
[~2016-10-07 10:49] MED LIST: DEXAMETHASONE SOD PHOSPHATE 10 MG/ML 1 ML VIAL IV ONE; HEPARIN SODIUM,PORCINE 5,000 UNIT/ML 1 ML VIAL SQ ONE; HYDROmorphone 1 MG/ML 1 ML SYRINGE IVP PRN; MIDAZOLAM 2 MG/2 ML VIAL IV PRN; ONDANSETRON 4 MG/2 ML VIAL IVP ONE; ceFAZolin 2 GM in SODIUM CHLORIDE 0.9% 100 ML IVPB ONE
[2016-10-07] MEDS ORDERED: LIDOCAINE 1% 20 ML VIAL (10MG/ML) FOR IV START INTRADERMA ONE (12:08)
[2016-10-07] MEDS: LACTATED RINGERS 1,000 ML IV SCH (12:10)
[2016-10-07] MEDS ORDERED: LIDOCAINE 1% INJ 10MG/ML (20 ML MDV) ONE (12:41)
[2016-10-07] MEDS ORDERED: ROCURONIUM BROMIDE 10 MG/ML 10 ML VIAL IV ONE (12:41)
[2016-10-07] MEDS ORDERED: GLYCOPYRROLATE 0.2 MG/ML 2 ML VIAL ONE (12:41)
[2016-10-07] MEDS ORDERED: NEOSTIGMINE 1 MG/ML 10 ML VIAL ONE (12:41)
[2016-10-07] MEDS ORDERED: fentaNYL (PF) 50 MCG/ML 2 ML AMP ONE (12:41)
[2016-10-07] MEDS ORDERED: MIDAZOLAM 2 MG/2 ML VIAL ONE (12:41)
[2016-10-07] MEDS ORDERED: PROPOFOL 10 MG/ML 20 ML VIAL IV ONE (12:41)
[2016-10-07] MEDS ORDERED: KETOROLAC 30 MG/ML 1 ML VIAL ONE (12:41)
[2016-10-07] MEDS ORDERED: HYDROmorphone (PF) 1 MG/ML ONE (12:41)
--- NOTE | 2016-10-07 12:41 | P.HPADDEND ---
H&P Addendum H&P Addendum Date: 10/07/16 Patient has symptomatic cholelithiasis with choecystitis. I have recommended a robot assissted laparocospic cholecystectomy I have explained the risks and benefits. She understands and is willing to proceed.
[2016-10-07] MEDS ORDERED: LIDOCAINE 1%-EPI 1:100,000 20 ML VIAL SQ ONE (13:04)
--- NOTE | 2016-10-07 14:22 | P.OP ---
Date of Procedure: 10/07/16 Preoperative Diagnosis: Chronic choelcystitis with cholelithiasis Postoperative Diagnosis: Chornic cholecystitis with cholelithiasis Procedure(s) Performed: Robot assisted laparoscopic cholecystectomy Implants: Anesthesia: JASON Surgeon: Suzy Sandra Estimated Blood Loss (ml): 7 Pathology: other Condition: stable Disposition: PACU Indications for Procedure: Operative Findings: Chornically inflamed gallbladder with cholelithiasis Description of Procedure: Patient is a 30-year-old female who presented with right upper quadrant pain and a clinical diagnosis of chronic cholecystitis was made. After appropriate informed consent and answering all the patient's questions patient taken the operating placement position and given general anesthesia with endotracheal intubation. After an unsuccessful attempt to use optiview technique in the left upper quadrant, the Veress needle was usedd in the Plamers point for insufflation after appropriately positioned needle was confirmed with the drop test. The abdominal cavity was insufflated to 15 mmHg . Once the abdomen insufflated 5 mm Optiview was used to enter the abdominal cavity through the infraumbilical incision. Three 8 mm ports were then placed for the robot in the left upper quadrant and right upper quadrant. The 5 mm port in the infraumbilical crease was replaced with a 12 mm port and a 5mm assist port was placed in the left lower quadrant. Once ports were then placed the patient was placed in appropriate position of left side down and reverse Trendelenburg. The robot was docked and Prograsp was taken in arm 3, cardiere forceps in arm 2. Camera was through the 12 mm umbilical port site. And a hook cautery was taken in the arm 1. Gallbladder was retracted cephalad and superiorly. Inflammatory adhesions were taken down with the help of electrocautery. Appropriate critical view was obtained in cystic duct and artery were isolated. 2 clips proximally and 1 distally were plced in the artery and cystic duct and then and transected sharply with the help of scissors. The gallbladder was then taken off the gallbladder fossa with the help of electrocautery. The abdomen was thoroughly irrigated and sucked dry. Gallbladder was then placed in Endo Catch bag and removed through 12 port site after undocking the robot. Abdomen was then again visualized and completely irrigated and sucked dry. 12 mm port site was closed with the help of a Steven Nicholson under direct laparoscopic view using 0 PDS. At this point the procedure was terminated and all ports were removed. Local anesthesia infiltrated into the incisions skin was closed with 4-0 Monocryl and Dermabond was applied. Patient is tolerated the porcedure well with no complications. She was extubated and taken to recovery room in stable condition.
[2016-10-07 14:33] VITALS: TEMP 97.7
[2016-10-07 15:07] VITALS: PULSE 70; RESP 18
[2016-10-07] MEDS ORDERED: HYDROcodone/APAP 5-325MG 1 EACH TAB PO ONE (15:35)
[2016-10-07 15:55] VITALS: BP 134/77
== END 2016-10-07 16:23 | disposition home or self-care (01) ==
LOC: OR 10:49
PROVIDERS: ATTEND Surgery
DX: K80.10 Calculus of gallbladder with chronic cholecystitis without obstruction (principal); Z79.84 Long term (current) use of oral hypoglycemic drugs; Z79.899 Other long term (current) drug therapy; F17.200 Nicotine dependence, unspecified, uncomplicated; E66.9 Obesity, unspecified; Z68.42 Body mass index [BMI] 45.0-49.9, adult
CPT/HCPCS: 47562; S2900; 81025; 88304

== ENCOUNTER 2019-08-16 09:55 | Inpatient (IN) | payer BC ==
[2019-08-15 13:21] VITALS: BMI 49.6
[2019-08-16] MEDS ORDERED: ceFAZolin 3 GM in SODIUM CHLORIDE 0.9% 100 ML IVPB ONE (10:12)
[2019-08-16] MEDS ORDERED: LACTATED RINGERS 1,000 ML IV ONE (10:12)
[2019-08-16] MEDS ORDERED: CITRIC ACID-SODIUM CITRATE 15 ML CUP PO ONE (10:12)
[2019-08-16 10:29] LABS: Basophils % (A) 0 %; Eosinophils # (A) 0.1 k/uL (0-0.7); Eosinophils % (A) 1 %; HCT 38.3 % (34.0-46.0); HGB 12.9 gm/dL (11.4-16.0); Lymphocytes # (A) 1.3 k/uL (1.0-4.8); Lymphocytes % (A) 20 %; MCH 32.2 pg (25.0-35.0); MCHC 33.6 g/dL (31.0-37.0); MCV 95.7 fL (80.0-100.0); Mean Platelet Volume 9.5; Monocytes # (A) 0.3 k/uL (0-1.0); Monocytes % (A) 5 %; Neutrophils # (A) 4.6 k/uL (1.3-7.7); Neutrophils % (A) 72 %; Platelet Count 188 k/uL (150-450); RDW 14.1 % (11.5-15.5); WBC 6.4 k/uL (3.8-10.6)
[2019-08-16] MEDS: LACTATED RINGERS 1,000 ML IV SCH ×4 (10:41→22:17)
--- NOTE | 2019-08-16 11:33 | P.HPOB ---
History of Present Illness H&P Date: 08/16/19 Chief Complaint: At 39-0/7 weeks, previous section, requesting repeat The patient is a 33-year-old 2 para 1001 admitted at 39-0/7 weeks as established by last menstrual period and confirmed by 9 week ultrasound. She is admitted for repeat low transverse section having previously undergone section for arrest of dilation and descent. Her has been essentially uncomplicated though she does have a 5 cm left lateral fibroid which has not caused any difficulties during the . Group B strep status is negative. Obstetrical history: 2 para 1001 with 1 term section as noted above. Current statistics are listed in history of present illness. EDC of 08/23/2019 was established by last menstrual period and confirmed by 9 week ultrasound. Laboratory workup demonstrates a blood type of O+ with a negative antibody screen. Rubella status is immune. Early Glucola as well as second trimester Glucola were within normal limits. Group B strep status is negative. Gynecologic history: Unremarkable with no history of any infections to include STDs. Review of Systems Review of systems is confined to history of present illness. Past Medical History Past Medical History: GERD/Reflux Additional Past Medical History / Comment(s): uterine fibroid. , - LMP October 2018., HX Gestational diabetes with previous ., heartburn with . History of Any Multi-Drug Resistant Organisms: None Reported Past Surgical History: Section, Cholecystectomy Past Anesthesia/Blood Transfusion Reactions: No Reported Reaction Past Psychological History: No Psychological Hx Reported Smoking Status: Former smoker Past Alcohol Use History: None Reported Additional Past Alcohol Use History / Comment(s): QUIT SMOKING SEPTEMBER 2015, SMOKED 1PPD, STARTED SMOKING AGE 19. Past Drug Use History: None Reported - Past Family History Father Family Medical History: Hypertension Mother Family Medical History: No Reported History Medications and Allergies Home Medications Medication Instructions Recorded Confirmed Type Calcium Carbonate [Tums] 500 mg PO DIRECTED PRN 08/15/19 08/16/19 History Pnv No.95/Ferrous Fum/Folic AC 1 each PO DAILY 08/15/19 08/16/19 History [ Multivitamin Tablet] Allergies Allergy/AdvReac Type Severity Reaction Status Date / Time No Known Allergies Allergy Verified 08/16/19 10:10 Exam Vital Signs Temp Pulse Resp BP Pulse Ox 08/16/19 10:03 98.1 F 88 16 127/68 97 Intake and Output 08/15/19 08/16/19 08/16/19 22:59 06:59 14:59 Other: Weight 127.006 kg In general, this is a morbidly obese white female in no acute distress. Her heart has a regular rhythm and rate without murmur. Her lungs are clear to auscultation bilaterally in all sandoval. Her abdomen is gravid, obese, n ondistended, has normal active bowel sounds, soft, nontender, and without any palpable masses aside from uterine fundus. Her extremities are without any cyanosis, clubbing, or significant edema bilaterally and are nontender to palpation bilaterally as well. Digital cervical examination is deferred. Results Result Diagrams: 08/16/19 10:10 Assessment and Plan (1) Term Current Visit: Yes Status: Acute Code(s): Z34.90 - ENCNTR FOR SUPRVSN OF NORMAL , UNSP, UNSP TRIMESTER SNOMED Code(s): 36527556 (2) Previous section Current Visit: Yes Status: Acute Code(s): Z98.891 - HISTORY OF UTERINE SCAR FROM PREVIOUS SURGERY SNOMED Code(s): 578297392 Plan: The patient is admitted for repeat low transverse section. The risks and complications of the procedure been thoroughly discussed and the patient has understood and agreed to proceed.
[2019-08-16] MEDS ORDERED: fentaNYL (PF) 50 MCG/ML 2 ML AMP ONE (12:02)
[2019-08-16] MEDS ORDERED: MORPHINE SULFATE (PF) 0.3 MG/0.3 ML SYR ONE (12:02)
[2019-08-16] MEDS ORDERED: ONDANSETRON 4 MG/2 ML VIAL ONE (12:02)
[2019-08-16] MEDS ORDERED: KETOROLAC 30 MG/ML 1 ML VIAL ONE (12:02)
[2019-08-16] MEDS ORDERED: diphenhydrAMINE 25 MG CAP PO PRN (12:58)
[2019-08-16] MEDS ORDERED: diphenhydrAMINE 50 MG CAP PO PRN (12:58)
[2019-08-16] MEDS ORDERED: IBUPROFEN 600 MG TAB PO PRN (12:58)
[2019-08-16] MEDS ORDERED: SIMETHICONE 80 MG CHEWABLE PO PRN (12:58)
[2019-08-16] MEDS ORDERED: METOCLOPRAMIDE 5 MG/ML 2 ML VIAL IVP PRN (12:58)
[2019-08-16] MEDS ORDERED: ZOLPIDEM 5 MG TAB PO PRN (12:58)
[2019-08-16] MEDS ORDERED: NALOXONE 0.4 MG/ML 1 ML VIAL IV PRN (12:58)
[2019-08-16] MEDS ORDERED: HYDROcodone/APAP 7.5-325MG 1 EACH TAB PO PRN (12:58)
[2019-08-16] MEDS ORDERED: ONDANSETRON 4 MG/2 ML VIAL IVP PRN (12:58)
[2019-08-16] MEDS ORDERED: ACETAMINOPHEN TAB 325 MG TAB PO PRN (12:58)
[2019-08-16] MEDS ORDERED: diphenhydrAMINE 50 MG/ML 1 ML VIAL IVP PRN ×2 (12:58)
[2019-08-16] MEDS ORDERED: OXYTOCIN 20 UNITS/1000 ML NS 1,000 ML IV SCH (13:00)
--- NOTE | 2019-08-16 13:06 | P.OP ---
Date of Procedure: 08/16/19 Preoperative Diagnosis: #1. 39-0/7 weeks, previous section, requesting repeat Postoperative Diagnosis: Same Procedure(s) Performed: #1 repeat low transverse section Anesthesia: spinal Surgeon: Tunde Ro Crew Trainer #1: Yael Tanner Estimated Blood Loss (ml): 500 IV fluids (ml): 1,200 Urine output (ml): 100 Pathology: none sent Condition: stable Disposition: floor Operative Findings: Intraoperatively, there was minimal to average amount of scarring present at the rectus muscles and fascia. The patient was delivered of a viable 8 lbs. 0 oz. baby girl with Apgars of 9 at 1 minute and 9 at 5 minutes delivered in the left occiput transverse position. The placenta was delivered spontaneously, intact, and grossly normal with a grossly normal three-vessel cord. There was a r elatively large, roughly 5 cm, intramural fibroid in the central portion of the anterior myometrium just above the level of the incision. The uterus, tubes, and ovaries were otherwise entirely normal to inspection. Description of Procedure: The patient was prepped and draped in usual fashion after spinal anesthesia was administered by the anesthesiologist. A Pfannenstiel incision was made through pre-existing scar and extended into the abdominal cavity with minimal difficulty. The bladder peritoneum was noted to be far distal to the intended site of incision was left intact. A 2 cm incision was made in the transverse plane of the lower uterine segment to enter the uterus at which time clear fluid was noted. The incision was extended in both directions using the bandage scissors. The head was encountered and delivered up and through the incision where the nose and mouth were thoroughly suctioned. The remainder of the was delivered onto the field where the cord was doubly clamped, cut, and the passed for resuscitative measures with weight and Apgars as noted above. A segment of cord was then doubly clamped, cut, and set aside should cord gases become necessary. The placenta was delivered spontaneously with traction and uterine massage with the placental findings as noted above. The uterus was exteriorized and the interior cavity of uterus swept of any remaining placental or membranous fragments. The margins of the incision were grasped with Young clamps and the incision closed in 2 layers. First layer was a running locking stitch of 0 chromic catgut followed by a running imbricating stitch of 0 chromic catgut, each from margin to margin. Prior to closure there was noted to be a roughly 5 cm intramural fibroid extending towards the mucosal surface just above the level of the incision. After closure, hemostasis appeared excellent. The posterior cul-de-sac was suctioned with a guard and the uterine and ovarian findings are as noted above. The uterus was replaced within the abdominal cavity and the gutters swept of any remaining blood, fluid, or clot. The layer of muscles was examined and made hemostatic with the Bovie. The fascia was closed with 2 running stitches of 0 Vicryl proceeding from the lateral margins to the midpoint. The subcutaneous tissues were irrigated, made hemostatic with the Bovie, and reapproximated with a running stitch of 30 plain catgut. The skin was reapproximated with a running subcuticular stitch of 4-0 Vicryl followed by half-inch Steri-Strips placed with Mastisol. Estimated blood loss for the entire case was approximate 500 mL. There were no complications. All sponge, instrument, and needle counts were correct. The patient tolerated the procedure all proceeded to the recovery room in stable condition. Both mother and infant are resting comfortably in recovery.
[2019-08-16] MEDS: SENNOSIDES-DOCUSATE SODIUM 1 EACH TAB PO SCH (22:15)
[2019-08-17] MEDS: KETOROLAC 30 MG/ML 1 ML VIAL IVP PRN ×2 (05:01→11:39)
[2019-08-17] MEDS: LACTATED RINGERS 1,000 ML IV SCH ×2 (05:37)
[2019-08-17 05:39] LABS: Basophils % (A) 0 %; Eosinophils # (A) 0.1 k/uL (0-0.7); Eosinophils % (A) 1 %; HGB 10.9 gm/dL (11.4-16.0); Lymphocytes # (A) 0.8 k/uL (1.0-4.8); Lymphocytes % (A) 9 %; MCH 32.1 pg (25.0-35.0); MCHC 33.1 g/dL (31.0-37.0); MCV 96.7 fL (80.0-100.0); Mean Platelet Volume 10.4; Monocytes # (A) 0.3 k/uL (0-1.0); Monocytes % (A) 3 %; Neutrophils # (A) 7.5 k/uL (1.3-7.7); Neutrophils % (A) 85 %; Platelet Count 130 k/uL (150-450); RBC 3.41 m/uL (3.80-5.40); RDW 14.1 % (11.5-15.5); WBC 8.8 k/uL (3.8-10.6)
--- NOTE | 2019-08-17 08:38 | P.PNOBGPC ---
Subjective - Subjective Patient reports: Reports appetite normal, Reports voiding normally, Reports pain well controlled, Reports ambulating normally : doing well Objective - Vital Signs Latest vital signs: Vital Signs Temp Pulse Resp BP Pulse Ox 08/17/19 00:52 98.1 F 76 18 130/69 08/17/19 00:00 98.2 F 125 H 16 127/62 08/16/19 20:00 98.7 F 77 18 127/66 08/16/19 15:06 98.3 F 63 16 112/64 98 08/16/19 14:37 64 17 110/55 08/16/19 14:05 66 16 114/64 08/16/19 14:04 98.4 F 66 17 114/64 08/16/19 13:51 68 16 123/58 08/16/19 13:35 97.6 F 73 16 98/57 97 08/16/19 13:16 97.6 F 68 16 101/60 99 08/16/19 13:03 97.6 F 75 16 103/54 98 08/16/19 10:03 98.1 F 88 16 127/68 97 Intake and Output 08/16/19 08/17/19 08/17/19 22:59 06:59 14:59 Intake Total 1225 Output Total 250 1550 Balance 975 -1550 Intake: IV 375 Oral 850 Output: Urine 250 1550 Straight 1200 Other: Voiding Method Indwelling Catheter - Exam Extremities: Present: normal Abdomen: Present: normal appearance, soft. Absent: distention, tenderness Incision: Present: normal, dry, intact Uterus: Present: normal, firm (The uterine fundus is tonic and minimally tender around the umbilicus.) - Labs Labs: Abnormal Lab Results - Last 24 Hours (Table) 08/17/19 Range/Units 05:23 RBC 3.41 L (3.80-5.40) m/uL Hgb 10.9 L (11.4-16.0) gm/dL Hct 33.0 L (34.0-46.0) % Plt Count 130 L (150-450) k/uL Lymphocytes # 0.8 L (1.0-4.8) k/uL Assessment and Plan (1) Term Current Visit: Yes Status: Acute Code(s): Z34.90 - ENCNTR FOR SUPRVSN OF NORMAL , UNSP, UNSP TRIMESTER SNOMED Code(s): 72940636 (2) Previous section Current Visit: Yes Status: Acute Code(s): Z98.891 - HISTORY OF UTERINE SCAR FROM PREVIOUS SURGERY SNOMED Code(s): 594402259 (3) S/P section Current Visit: Yes Status: Acute Code(s): Z98.891 - HISTORY OF UTERINE SCAR FROM PREVIOUS SURGERY SNOMED Code(s): 947305561 Plan: Continue routine postoperative and care. I have encouraged the patient and the hallways routinely. I would anticipate discharge home tomorrow pending no complications.
[2019-08-17] MEDS: SENNOSIDES-DOCUSATE SODIUM 1 EACH TAB PO SCH ×2 (08:58→19:58)
--- NOTE | 2019-08-17 09:04 | P.PN ---
Progress Note - Text Progress Note Date: 08/17/19 Patient seen and examined at beside. POD #1 s/p with spinal anesthesia and duramorph. Patient feels great today without complaints. Patient denies chest pain, sob, fever, chills, dizziness, headache, N/V. Patient is able to ambulate and void without difficulty. Patients procedure site is clean without erythema. All questions answered. Paco Joseph DO
[2019-08-17] MEDS: HYDROcodone/APAP 5-325MG 1 EACH TAB PO PRN (23:21)
[2019-08-18 01:05] VITALS: RESP 16
[2019-08-18] MEDS: HYDROcodone/APAP 5-325MG 1 EACH TAB PO PRN (05:55)
[2019-08-18] MEDS: SENNOSIDES-DOCUSATE SODIUM 1 EACH TAB PO SCH (08:17)
[2019-08-18 08:38] VITALS: BP 116/62; PULSE 91; TEMP 98
--- NOTE | 2019-08-18 08:38 | P.DS ---
Providers Date of admission: 08/16/19 09:55 Expected date of discharge: 08/18/19 Attending physician: Tunde Ro Primary care physician: Primo Brooks - Discharge Diagnosis(es) (1) Term Current Visit: Yes Status: Acute (2) Previous section Current Visit: Yes Status: Acute (3) S/P section Current Visit: Yes Status: Acute Hospital Course: The patient is a 33-year-old 2 para 1001 admitted at 39-0/7 weeks by good dating parameters. She is admitted for repeat low transverse section having undergone previous for her first delivery. Her has been uncomplicated and group B strep status is negative. On labor and delivery, she was taken the operating room where she was delivered by section of a viable 8 lbs. 0 oz. baby girl with Apgars of 9 at 1 minute and 9 at 5 minutes. She was noted to have a roughly 5 cm intramural to submucosal fibroid just above the level of the uterine incision which was left in place. Her postoperative course was entirely unremarkable with vital signs or any stable and her temperature was afebrile throughout. She was deemed stable for discharge on post operative day #2 and was discharged home to follow- up in the office in 2 weeks for an incision check and 6 weeks routinely. Discharge instructions included calling for any significantly increased bleeding or foul-smelling lochia, significantly increased fever or abdominal pain, perineal complaints, breast complaints, incisional complaints, or anything else that concerned her. She is additionally instructed to have nothing in the vagina for at least 6 weeks time to include intercourse and to abstain from any heavy lifting over the same period of time. She was lastly instructed to do no driving until off of all pain medications or 2 weeks' time, whichever came first. She understood all of her instructions and agrees to follow up as noted above. Discharge medications included continue vitamins as she has opted to breast-feed. She was additionally use [id number] analgesic pain medications but was provided with a prescription for Tylenol 3, 1-2 by mouth every 6 hours when necessary pain, #20 dispensed with no refills. Maternal blood type is O+ and rubella status is immune. Discharge hemoglobin and hematocrit were 10.9 and 33.0 respectively. Procedures: #1. Repeat low transverse section Patient Condition at Discharge: Stable Plan - Discharge Summary Discharge Rx Participant: Yes New Discharge Prescriptions: No Action Calcium Carbonate [Tums] 500 mg PO DIRECTED PRN PRN Reason: Heartburn Pnv No.95/Ferrous Fum/Folic AC [ Multivitamin Tablet] 1 each PO DAILY Discharge Medication List Calcium Carbonate [Tums] 500 mg PO DIRECTED PRN 08/15/19 [History] Pnv No.95/Ferrous Fum/Folic AC [ Multivitamin Tablet] 1 each PO DAILY [History] Follow up Appointment(s)/Referral(s): Tunde Ro MD [STAFF PHYSICIAN] - 2 Weeks Discharge Disposition: HOME SELF-CARE
== END 2019-08-18 10:15 | disposition home or self-care (01) | DRG 788 ==
LOC: 4FBP 09:55
PROVIDERS: ADMIT Obstetrics & Gynecology; ATTEND Obstetrics & Gynecology
PROC: 10D00Z1 Extraction of Products of Conception, Low, Open Approach (ICD-10-PCS; principal; 2019-08-16 12:00)
DX: O34.211 Maternal care for low transverse scar from previous cesarean delivery (principal); D25.1 Intramural leiomyoma of uterus; D25.0 Submucous leiomyoma of uterus; N85.8 Other specified noninflammatory disorders of uterus; O34.13 Maternal care for benign tumor of corpus uteri, third trimester; O99.214 Obesity complicating childbirth; E66.01 Morbid (severe) obesity due to excess calories; O99.62 Diseases of the digestive system complicating childbirth; K21.9 Gastro-esophageal reflux disease without esophagitis; Z37.0 Single live birth; Z3A.39 39 weeks gestation of pregnancy; Z11.59 Encounter for screening for other viral diseases; Z79.899 Other long term (current) drug therapy; Z86.32 Personal history of gestational diabetes; Z90.49 Acquired absence of other specified parts of digestive tract; Z87.891 Personal history of nicotine dependence; Z82.49 Family history of ischemic heart disease and other diseases of the circulatory system
CPT/HCPCS: 85025; 86850; 86900; 86901; 87635